=== PATIENT | male | born 1960 | race Caucasian/White ===

== ENCOUNTER 2018-08-19 08:40 | Day surgery (SDC) | payer BC ==
[2018-08-19] MEDS ORDERED: Ringers Lactate 1,000 ML IV ONE (09:07)
[2018-08-19] MEDS ORDERED: PROPOFOL 200 MG/20 ML VIAL IV ONE (11:08)
[2018-08-19] MEDS ORDERED: LIDOCAINE 1% MPF 5 ML VIAL ONE (11:08)
--- NOTE | 2018-08-19 13:00 | ENDO RPT ---
[address], [address] COLONOSCOPY PROCEDURE REPORT EXAM DATE: 08/19/2018 PATIENT NAME: Franklin Prado MR #: [id number] BIRTHDATE: 1960 ATTENDING: Vance Flaherty DR STATUS: outpatient INSIGHTS ANALYST: Desmond Chappell and Paola Cartagena RN INDICATIONS: The patient is a 58 yr old Male here for a colonoscopy due to colon cancer screening PROCEDURE PERFORMED: Colonoscopy with biopsy - cold polypectomy MEDICATIONS: Per Anesthesia. ESTIMATED BLOOD LOSS: None CONSENT: The patient understands the risks and benefits of the procedure and understands that these risks include, but are not limited to: sedation, allergic reaction, infection, perforation and/or bleeding. Alternative means of evaluation and treatment include, among others: physical exam, x-rays, and/or surgical intervention. The patient elects to proceed with this endoscopic procedure. DESCRIPTION OF PROCEDURE: During intra-op preparation period all mechanical medical equipment was checked for proper function. Hand hygiene and appropriate measures for infection prevention was taken. Procedure, possible complications, alternatives including, but not limited to possibility of bleeding, perforation, tear, infection, sepsis, need for surgery, need for blood transfusion, were explained to the patient. After the risks, benefits and alternatives of the procedure were thoroughly explained, Informed consent was verified, confirmed and timeout was successfully executed by the treatment team. The patient was placed in the left lateral position. A digital rectal exam was performed and revealed internal hemorrhoids. After appropriate level of anesthesia, the scope was passed. The EC-[id number] ([id number]) endoscope was introduced through the anus and advanced to the cecum, which was identified by both the appendix and ileocecal valve. The quality of the prep was fair. The instrument was then slowly withdrawn as the colon was fully examined. Scope withdrawal time was 8 minutes. COLON FINDINGS: A small smooth sessile polyp with a mucous cap and a friable surface was found in the left colon. A polypectomy was performed with cold forceps. The resection was complete, the polyp tissue was completely retrieved and sent to histology. Mild diverticulosis was noted in the sigmoid colon. No bleeding was noted from the diverticulosis. Moderate sized internal hemorrhoids were found. Retroflexed views revealed no abnormalities. The scope was then completely withdrawn from the patient and the procedure terminated. ADVERSE EVENTS: There were no complications. IMPRESSIONS: Small sessile polyp was found in the left colon; polypectomy was performed in a piecemeal fashion with cold forceps RECOMMENDATIONS: 1. avoid NSAIDS for 2 weeks 2. await biopsy results 3. fiber rich diet 4. follow-up: office 2 week(s) 5. increase dietary water 6. yearly hemoccult starting in 4 years RECALL: Return in 5 year(s) for Colonoscopy, pending biopsy results. Pending Biopsy Results Vance Flaherty DR eSigned: Vance Flaherty DR 08/19/2018 11:50 AM cc: CPT CODES: ICD9 CODES: PATIENT NAME: Franklin Prado MR#: [id number]
== END 2018-08-19 12:32 | disposition home or self-care (01) ==
LOC: OR 08:40
PROVIDERS: ATTEND Surgery
PROC: 0DBM8ZX Excision of Descending Colon, Via Natural or Artificial Opening Endoscopic, Diagnostic (ICD-10-PCS; principal; 2018-08-19 10:30)
DX: Z12.11 Encounter for screening for malignant neoplasm of colon (principal); D12.4 Benign neoplasm of descending colon; K57.30 Diverticulosis of large intestine without perforation or abscess without bleeding; K64.8 Other hemorrhoids; G47.33 Obstructive sleep apnea (adult) (pediatric); Z85.53 Personal history of malignant neoplasm of renal pelvis; Z87.891 Personal history of nicotine dependence; Z88.6 Allergy status to analgesic agent; Z90.5 Acquired absence of kidney; Z83.3 Family history of diabetes mellitus; Z80.0 Family history of malignant neoplasm of digestive organs
CPT/HCPCS: 88305; J2704